=== PATIENT | female | born 1970 | race Caucasian/White ===

== ENCOUNTER 2020-03-21 01:29 | Inpatient (IN) | payer MEDICAID, SELFPAY ==
[~2020-03-21] VITALS: Ht 157.5 cm; Wt 106.7 kg
[2020-03-21 01:39] VITALS: Ht 157.5 cm; Wt 106.7 kg
[2020-03-21] MEDS ORDERED: METFORMIN HYD1000 M2 PO (03:33)
[2020-03-21] MEDS ORDERED: ZESTRIL30 MG (03:34)
[2020-03-21] MEDS ORDERED: LEVEMIR100 U/M1 SC (03:34)
[2020-03-21] MEDS ORDERED: HUMALOG100 U/ML (03:35)
[2020-03-21 04:52] LABS: CALCIUM 8.5 mg/dL (8.5-10.1); CARBON DIOXIDE 26.9 mmol/L (21-32); CHLORIDE SERUM 101 mmol/L (98-107); CREATININE SERUM 0.5 mg/dL (0.6-1.0); GFR1 > 60 mL/min; GLUCOSE SERUM 120 mg/dL (74-106); POTASSIUM SERUM 4.1 mmol/L (3.5-5.1); SODIUM SERUM 135 mmol/L (136-145)
[2020-03-21 04:56] LABS: ALKALINE PHOSPHATASE 99 U/L (46-116); ALT/SGPT 34 U/L (14-59); AST/SGOT 15 U/L (15-37); BILIRUBIN TOTAL 0.16 mg/dL (0.20-1.00); C REACTIVE PROTEIN 2.8 mg/dL (<=0.9); LACTIC DEHYDROGENASE (LDH) 220 U/L (100-190); TOTAL PROTEIN, SERUM 7.7 g/dL (6.4-8.2)
[2020-03-21 04:58] LABS: BASOPHIL % 0.3 % (0-2); PLATELET COUNT 329 x10^3mcL (130-400)
[2020-03-21 05:00] LABS: ALBUMIN 3.3 g/dL (3.4-5.0)
[2020-03-21 05:45] LABS: microscopic required? YES; urine erythrocyte NEGATIVE (NEGATIVE)
[2020-03-21 10:18] VITALS: BP 123/65
[2020-03-21 13:26] VITALS: BP 131/71
[2020-03-21 17:44] VITALS: BP 134/51
[2020-03-21 20:30] VITALS: BP 130/55
[2020-03-22 05:12] VITALS: BP 134/66
[2020-03-22 07:10] LABS: BASOPHIL % 0.4 % (0-2); PLATELET COUNT 333 x10^3mcL (130-400); RED CELL DISTRIBUTION WIDTH 14.4 % (11.5-14.5)
[2020-03-22 07:30] LABS: CALCIUM 8.8 mg/dL (8.5-10.1); CARBON DIOXIDE 28.8 mmol/L (21-32); CHLORIDE SERUM 103 mmol/L (98-107); CREATININE SERUM 0.6 mg/dL (0.6-1.0); GFR1 > 60 mL/min; GLUCOSE SERUM 175 mg/dL (74-106); MAGNESIUM 2.2 mg/dL (1.8-2.4); PHOSPHOROUS 3.9 mg/dL (2.5-4.9); POTASSIUM SERUM 4.4 mmol/L (3.5-5.1); SODIUM SERUM 139 mmol/L (136-145)
[2020-03-22 08:39] VITALS: BP 107/47
[2020-03-22 13:28] VITALS: BP 114/54
[2020-03-22 18:16] VITALS: BP 100/50
[2020-03-22 20:50] VITALS: BP 118/50
[2020-03-23 06:07] VITALS: BP 123/68
[2020-03-23 07:40] VITALS: BP 102/43
[2020-03-23] MEDS ORDERED: HUMALOG100 U/ML SC (11:40)
[2020-03-23] MEDS ORDERED: ZITHROMAX500 MG PO (11:48)
[2020-03-23 12:20] VITALS: BP 141/75
[2020-03-23 13:01] VITALS: BP 102/43
== END 2020-03-23 13:45 | disposition home or self-care (01) | DRG 720 ==
LOC: ED 01:29 → DU 05:19
PROVIDERS: Emergency Medicine; ADMIT Student in an Organized Health Care Education/Training Program; ATTEND Student in an Organized Health Care Education/Training Program
DX: A41.9 Sepsis, unspecified organism (principal); J96.01 Acute respiratory failure with hypoxia; U07.1 COVID-19; Z68.41 Body mass index [BMI] 40.0-44.9, adult; E78.00 Pure hypercholesterolemia, unspecified; D64.9 Anemia, unspecified; E66.9 Obesity, unspecified; N39.0 Urinary tract infection, site not specified; E11.65 Type 2 diabetes mellitus with hyperglycemia; E78.5 Hyperlipidemia, unspecified; J12.89 Other viral pneumonia; Z79.899 Other long term (current) drug therapy; Z79.4 Long term (current) use of insulin
CPT/HCPCS: 36600; 82962; 83880; 85378; 87804; G0378; J0456; J0696; J1644; J1815; J1885; J7050; J7060; Q0092; U0003-CS

== ENCOUNTER 2020-06-07 12:11 | Emergency (ER) | payer MEDICAID ==
[~2020-06-07] VITALS: Ht 154.9 cm; Wt 105.2 kg
[~2020-06-07 12:11] MED LIST: HUMALOG100 U/ML; HUMALOG100 U/ML SC; LEVEMIR100 U/M1 SC; METFORMIN HYD1000 M2 PO; ZESTRIL30 MG; ZITHROMAX500 MG PO
[2020-06-07 12:22] VITALS: Ht 154.9 cm; Wt 105.2 kg
[2020-06-07 12:58] LABS: BASOPHIL % 0.4 % (0-2); PLATELET COUNT 366 x10^3mcL (130-400); RED CELL DISTRIBUTION WIDTH 14.2 % (11.5-14.5)
[2020-06-07 13:41] LABS: CALCIUM 8.8 mg/dL (8.5-10.1); CHLORIDE SERUM 102 mmol/L (98-107); CREATININE SERUM 0.7 mg/dL (0.6-1.0); GFR1 > 60 mL/min; GLUCOSE SERUM 214 mg/dL (74-106); POTASSIUM SERUM 4.2 mmol/L (3.5-5.1); SODIUM SERUM 137 mmol/L (136-145)
[2020-06-07 13:46] LABS: ALBUMIN 3.3 g/dL (3.4-5.0); ALKALINE PHOSPHATASE 102 U/L (46-116); ALT/SGPT 33 U/L (14-59); AST/SGOT 21 U/L (15-37); BILIRUBIN TOTAL 0.32 mg/dL (0.20-1.00); LIPASE 82 IU/L (73-393); TOTAL PROTEIN, SERUM 7.5 g/dL (6.4-8.2)
[2020-06-07 14:39] LABS: microscopic required? YES; urine erythrocyte NEGATIVE (NEGATIVE)
[2020-06-07 15:11] VITALS: BP 137/68
== END 2020-06-07 15:11 | disposition home or self-care (01) ==
LOC: ED 12:11
PROVIDERS: Emergency Medicine
DX: R10.13 Epigastric pain (principal); R10.11 Right upper quadrant pain; I10 Essential (primary) hypertension; E11.9 Type 2 diabetes mellitus without complications; E78.00 Pure hypercholesterolemia, unspecified
CPT/HCPCS: J2270; J7030; Q0092

== ENCOUNTER 2020-06-11 19:10 | Emergency (ER) | payer MEDICAID ==
[~2020-06-11] VITALS: Ht 162.6 cm; Wt 105.7 kg
[2020-06-11 19:26] VITALS: Ht 162.6 cm; Wt 105.7 kg
[2020-06-11 20:59] LABS: BASOPHIL % 0.5 % (0-2); PLATELET COUNT 355 x10^3mcL (130-400); RED CELL DISTRIBUTION WIDTH 14.3 % (11.5-14.5)
[2020-06-11 21:09] LABS: CALCIUM 8.4 mg/dL (8.5-10.1); CARBON DIOXIDE 28.7 mmol/L (21-32); CHLORIDE SERUM 103 mmol/L (98-107); CREATININE SERUM 0.7 mg/dL (0.6-1.0); GFR1 > 60 mL/min; GLUCOSE SERUM 279 mg/dL (74-106); POTASSIUM SERUM 4.5 mmol/L (3.5-5.1); SODIUM SERUM 135 mmol/L (136-145)
[2020-06-11 21:16] LABS: ALKALINE PHOSPHATASE 93 U/L (46-116); ALT/SGPT 28 U/L (14-59); AST/SGOT 13 U/L (15-37); BILIRUBIN TOTAL 0.1 mg/dL (0.20-1.00)
[2020-06-11 21:18] LABS: ALBUMIN 3.1 g/dL (3.4-5.0)
[2020-06-11 22:45] VITALS: BP 129/68
== END 2020-06-11 22:45 | disposition home or self-care (01) ==
LOC: ED 19:10
PROVIDERS: Specialist
DX: R10.13 Epigastric pain (principal); I10 Essential (primary) hypertension; E11.9 Type 2 diabetes mellitus without complications; E78.00 Pure hypercholesterolemia, unspecified
CPT/HCPCS: J1885

== ENCOUNTER 2020-07-10 23:48 | Emergency (ER) | payer MEDICAID ==
[~2020-07-10] VITALS: Ht 157.5 cm; Wt 103.4 kg
[2020-07-10 23:55] VITALS: Ht 157.5 cm; Wt 103.4 kg
[2020-07-11 01:00] LABS: BASOPHIL % 0.5 % (0-2); PLATELET COUNT 342 x10^3mcL (130-400); RED CELL DISTRIBUTION WIDTH 14.5 % (11.5-14.5)
[2020-07-11 01:17] LABS: CALCIUM 8.8 mg/dL (8.5-10.1); CARBON DIOXIDE 26.9 mmol/L (21-32); CHLORIDE SERUM 100 mmol/L (98-107); CREATININE SERUM 0.7 mg/dL (0.6-1.0); GFR1 > 60 mL/min; GLUCOSE SERUM 326 mg/dL (74-106); POTASSIUM SERUM 3.9 mmol/L (3.5-5.1); SODIUM SERUM 135 mmol/L (136-145)
[2020-07-11 01:21] LABS: ALBUMIN 3.4 g/dL (3.4-5.0); ALKALINE PHOSPHATASE 112 U/L (46-116); ALT/SGPT 33 U/L (14-59); AST/SGOT 3 U/L (15-37); BILIRUBIN TOTAL 0.19 mg/dL (0.20-1.00); LIPASE 398 IU/L (73-393); TOTAL PROTEIN, SERUM 7.6 g/dL (6.4-8.2)
[2020-07-11 05:08] VITALS: BP 150/57
== END 2020-07-11 05:08 | disposition home or self-care (01) ==
LOC: ED 23:48
DX: K85.90 Acute pancreatitis without necrosis or infection, unspecified (principal)
CPT/HCPCS: J2270; J2405; Q0092

== ENCOUNTER 2020-11-10 22:53 | Emergency (ER) | payer MEDICAID ==
[~2020-11-10] VITALS: Ht 154.9 cm; Wt 102.5 kg
[2020-11-10 23:01] VITALS: Ht 154.9 cm; Wt 102.5 kg
[2020-11-10 23:56] LABS: BASOPHIL % 0.3 % (0.2-1.3); PLATELET COUNT 387 x10^3mcL (179-408); RED CELL DISTRIBUTION WIDTH 13.8 % (12.3-17.7)
[2020-11-11 00:24] LABS: CALCIUM 8.3 mg/dL (8.5-10.1); CARBON DIOXIDE 31.6 mmol/L (21-32); CHLORIDE SERUM 103 mmol/L (98-107); CREATININE SERUM 0.8 mg/dL (0.6-1.0); GFR1 > 60 mL/min; GLUCOSE SERUM 244 mg/dL (74-106); POTASSIUM SERUM 4.3 mmol/L (3.5-5.1); SODIUM SERUM 137 mmol/L (136-145)
[2020-11-11 00:31] LABS: ALKALINE PHOSPHATASE 120 U/L (46-116); ALT/SGPT 20 U/L (14-59); AST/SGOT 8 U/L (15-37); BILIRUBIN TOTAL 0.1 mg/dL (0.20-1.00); LIPASE 77 IU/L (73-393)
[2020-11-11 00:32] LABS: ALBUMIN 2.9 g/dL (3.4-5.0)
[2020-11-11 01:30] VITALS: BP 135/54
== END 2020-11-11 02:05 | disposition home or self-care (01) ==
LOC: ED 22:53
PROVIDERS: Emergency Medicine
DX: K76.0 Fatty (change of) liver, not elsewhere classified (principal); K21.9 Gastro-esophageal reflux disease without esophagitis; I10 Essential (primary) hypertension; E11.9 Type 2 diabetes mellitus without complications; E78.00 Pure hypercholesterolemia, unspecified
CPT/HCPCS: 82962; J1885; Q0162